=== PATIENT | male | born 1935 | race Caucasian/White ===

== ENCOUNTER 2016-08-22 20:44 | Inpatient (IN) ==
[2016-08-22] MEDS ORDERED: TICAGRELOR 90 MG TABLET ONE (21:02)
[2016-08-22] MEDS ORDERED: ASPIRIN 325 MG TABLET ONE (21:03)
[2016-08-22] MEDS ORDERED: NITROGLYCERIN 2% OINT 1 INCH/GM PACK TOP ONE (21:03)
[2016-08-22] MEDS ORDERED: SODIUM CHLORIDE 0.9% 500 ML IV STA (21:05)
[2016-08-22] MEDS ORDERED: ENOXAPARIN 100 MG/ML SYRINGE SUBCUT STA (21:05)
[2016-08-22] MEDS ORDERED: ASPIRIN CHEW 81 MG TABLET PO STA (21:05)
[2016-08-22] MEDS ORDERED: MORPHINE 2 MG/1 ML SYRINGE IV PRN (21:05)
[2016-08-22] MEDS ORDERED: TICAGRELOR 90 MG TABLET PO STA (21:05)
[2016-08-22] MEDS ORDERED: ENOXAPARIN 60 MG/0.6 ML SYRINGE ONE (21:07)
[2016-08-22] MEDS ORDERED: NITROGLYCERIN 2% OINT 1 INCH/GM PACK TOP STA (21:10)
[2016-08-22] MEDS ORDERED: ONDANSETRON 4 MG/2 ML VIAL ONE (21:11)
--- NOTE | 2016-08-22 21:14 | Emergency Department Note ---
Cheryl Ramirez Hilary, am scribing for, and in the presence of, Lion Lara MD 20:59. Marco Ramirez Robert M, MD, personally performed the services described in this documentation, ascribed by Latanya Luna in my presence, and it is both accurate and complete . Arrival - Arrival Stated Complaint: COPD Mode of Arrival: Stretcher Limitations: No Limitations Source: Patient, RN Notes Reviewed Time Seen by Provider: 08/22/16 20:54 - History of Present Illness HPI Narrative: Pt is a 80 y/o white male brought to the ED via EMS from [facility] for c/o trouble breathing which onset yesterday. Pt reports having trouble breathing and coughing up thin, colorless mucus. He states that when he coughs up a "big wad" [of mucus] he can breathe better. He denies any fever but confirms left chest pain which was not told to [facility]. No other complaints or problems stated in the ED. Onset (ago): day(s) Consistency: constant Severity: mild Severity scale (1-10): 1 Allergies/Adverse Reactions: Allergies Allergy/AdvReac Type Severity Reaction Status Date / Time blue dye Allergy Unknown Verified 01/17/16 10:15 budesonide [From Symbicort] Allergy Unknown Verified 01/17/16 10:14 Formoterol [From Symbicort] Allergy Unknown Verified 01/17/16 10:14 ibuprofen [From Advil] Allergy Unknown Verified 01/17/16 10:08 levofloxacin [From Levaquin] Allergy Unknown Verified 01/17/16 10:13 omeprazole Allergy Unknown Verified 01/17/16 10:13 tiotropium Allergy Unknown Verified 01/17/16 10:15 [From Spiriva with HandiHaler] Home Medications: Home Medications Medication Instructions Recorded Confirmed Type Albuterol Sulfate [Albuterol Neb] 2.5 mg RESP TX Q6HR 01/17/16 08/22/16 History Albuterol Sulfate [Ventolin HFA] 2 puff INH Q6H PRN 01/17/16 08/22/16 History Aspirin [Ecotrin] 81 mg PO DAILY 01/17/16 08/22/16 History Benzonatate [Tessalon] 100 mg PO TID 01/17/16 08/22/16 History Budesonide Neb [Pulmicort Respules] 0.25 mg RESP TX BID 01/17/16 08/22/16 History Docusate Sodium Cap [Colace Cap] 100 mg PO BEDTIME 01/17/16 08/22/16 History Finasteride 5 mg PO DAILY 01/17/16 08/22/16 History Furosemide Tab [Lasix Tab] 20 mg PO DAILY 01/17/16 08/22/16 History LORazepam [Lorazepam] 0.5 mg PO BID PRN 01/17/16 08/22/16 History Meclizine [Antivert] 25 mg PO QID PRN 01/17/16 08/22/16 History Potassium Chloride 20 meq PO DAILY 01/17/16 08/22/16 History Roflumilast [Daliresp] 500 mcg PO DAILY 01/17/16 08/22/16 History Tamsulosin [Flomax] 0.4 mg PO DAILY 01/17/16 08/22/16 History Aspirin 08/22/16 History Cyclobenzaprine [Flexeril] 10 mg PO TID PRN 08/22/16 08/22/16 History Ferrous Sulfate 325 mg PO DAILY 08/22/16 08/22/16 History Review of System - Review of System 12 point system: reviewed and no additional remarkable complaints except as stated - Review of System Constitutional: Absent: fever Respiratory: Present: respiratory distress (SOB) Cardiovascular: Absent: chest pain Exam Vital Signs: Vital Signs Temperature 97.7 F 08/22/16 20:44 Pulse Rate 109 H 08/22/16 21:27 Respiratory Rate 20 08/22/16 21:27 Blood Pressure 97/60 08/22/16 21:27 O2 Sat by Pulse Oximetry 96 08/22/16 21:27 - General General appearance: alert, in no apparent distress - Head Head exam: Present: atraumatic, normocephalic - Eye Eye exam: Present: normal appearance, PERRL, EOMI - ENT ENT exam: Present: mucous membranes moist, TM's normal bilaterally. Absent: mucous membranes dry - Neck Neck exam: Present: full ROM, trachea midline. Absent: tenderness - Chest Chest inspection: Present: symmetric chest wall rise, tenderness (left anterior chest wall pain), other (Barrel chested, subcostal retraction) - Respiratory Respiratory exam: Present: normal lung sounds bilaterally, other (speaks in one word sentences). Absent: respiratory distress - Cardiovascular Cardiovascular exam: Present: regular rate, normal rhythm, normal heart sounds. Absent: murmur, rubs, gallop - Abdominal Exam Abdominal exam: Present: soft, normal bowel sounds. Absent: distention, tenderness - Extremities Exam Extremities exam: Present: full ROM. Absent: tenderness - Back Exam Back exam: Present: full ROM. Absent: tenderness - Neurological Exam Neurological exam: Present: alert, oriented X3, CN II-XII intact. Absent: motor sensory deficit - Psychiatric Psychiatric exam: Present: normal affect, normal mood - Skin Skin exam: Present: warm, dry, intact, normal color. Absent: rash Course - Reevaluation(s) Reevaluation #1: It is confirmed that the patient has had left chest wall pain radiating to the axilla all day. He states this is been worse today although intermittently he has had episodes chronically. Time: 21:00 - Consultations Consultation #1: EKGs were sent to Dr. Rodríguez who is on-call. I paged him as well he called back at approximately 2105 hrs. at that time, he agreed that the EKG is equivocal and that we had the options of either just getting enzymes and treated conservatively and therefore falling out of the STEMI protocol should there truly be a STEMI versus taking the patient straight to laboratory machinist. Given the possibility of falling out of STEMI activation protocols, and the vague left chest pain present, I feel the best thing to do would be to take the patient to the [facility] Interference Super[facility] and evaluate. Dr. Rodríguez agrees. Time: 21:00 Results - Labs CBC & BMP: 08/22/16 21:05 08/22/16 21:05 Lab Results: I have reviewed the patients labs Labs: Lab Results WBC 17.0 T/CUMM (4-12) H 08/22/16 21:05 RBC 3.66 MC/CUMM (3.8-5.5) L 08/22/16 21:05 Hgb 10.6 GM/DL (14.0-18.0) L 08/22/16 21:05 Hct 31.4 VOL% (42.0-52.0) L 08/22/16 21:05 MCV 85.8 FL (87-102) L 08/22/16 21:05 MCH 29 PG (27-34) 08/22/16 21:05 MCHC 33.8 GM/DL (32-36) 08/22/16 21:05 RDW 16.2 % (9.3-17.3) 08/22/16 21:05 Plt Count 313 T/CUMM (130-400) 08/22/16 21:05 MPV 9.5 FL (9.6-12.0) L 08/22/16 21:05 Neut % (Auto) 92.7 % (38.7-73.9) H 08/22/16 21:05 Lymph % (Auto) 1.7 % (21.2-54.2) L 08/22/16 21:05 Mclennan % (Auto) 4.6 % (1.7-12.7) 08/22/16 21:05 Eos % (Auto) 0.0 % (0.00-10.9) 08/22/16 21:05 Baso % (Auto) 0.1 % (0.0-0.8) 08/22/16 21:05 Neut # (Auto) 15.7 10*3/uL (1.4-7.4) H 08/22/16 21:05 Lymph # (Auto) 0.3 10*3/uL (1.4-4.0) L 08/22/16 21:05 Mclennan # (Auto) 0.8 10*3/uL (0.11-0.8) 08/22/16 21:05 Eos # (Auto) 0.0 10*3/uL (0.0-0.87) 08/22/16 21:05 Baso # (Auto) 0.0 10*3/uL (0.0-0.2) 08/22/16 21:05 Total Counted 100 08/22/16 21:05 Immature Gran % 0.9 % 08/22/16 21:05 Nucleated RBC % 0.0 /100WBC 08/22/16 21:05 Immature Gran # 0.15 # 08/22/16 21:05 Segmented Neutrophils 93 % (50-85) H 08/22/16 21:05 Lymphocytes 4 % (20-55) L 08/22/16 21:05 Monocytes 3 % (2-15) 08/22/16 21:05 Nucleated RBCs # 0.00 10*3/uL 08/22/16 21:05 Platelet Estimate Normal 08/22/16 21:05 Hypochromasia Slight 08/22/16 21:05 Poikilocytosis Slight 08/22/16 21:05 Tear Drop Cells Few 08/22/16 21:05 INR 1.2 08/22/16 21:05 PT Patient/Control Mix 12.9 SECS 08/22/16 21:05 Sodium 138 MMOL/L (136-145) 08/22/16 21:05 Potassium 4.2 MMOL/L (3.5-5.1) 08/22/16 21:05 Chloride 102 MMOL/L (98-107) 08/22/16 21:05 Carbon Dioxide 25 MMOL/L (21-32) 08/22/16 21:05 Anion Gap 15.2 MMOL/L (5.0-15.0) H 08/22/16 21:05 BUN 32 MG/DL (7-18) H 08/22/16 21:05 Creatinine 1.30 MG/DL (0.70-1.30) 08/22/16 21:05 GFR Calculation 46 ML/MIN 08/22/16 21:05 BUN/Creatinine Ratio 24.00 RATIO (6.00-20.00) H 08/22/16 21:05 Glucose 121 MG/DL (74-106) H 08/22/16 21:05 Calculated Osmolality 282.7 MOS/KG (273-304) 08/22/16 21:05 Calcium 9.2 MG/DL (8.5-10.1) 08/22/16 21:05 Magnesium 2.3 MG/DL (1.8-2.4) 08/22/16 21:05 Total Bilirubin 0.60 MG/DL (0.2-1.0) 08/22/16 21:05 AST 31 U/L (0-37) 08/22/16 21:05 ALT 20 U/L (16-61) 08/22/16 21:05 Alkaline Phosphatase 98 U/L (45-117) 08/22/16 21:05 Troponin I < 0.015 NG/ML (0.00-0.045) 08/22/16 21:05 Total Protein 6.3 G/DL (6.4-8.3) L 08/22/16 21:05 Albumin 3.0 G/DL (3.4-5.0) L 08/22/16 21:05 Globulin 3.3 G/DL (2.3-3.5) 08/22/16 21:05 Albumin/Globulin Ratio 0.9 RATIO (1.1-2.2) L 08/22/16 21:05 Critical Care Time Critical Care Time: Yes Total Critical Care Time: 43 Disposition Clinical Impression: STEMI (ST elevation myocardial infarction), Acute exacerbation of chronic obstructive airways disease Case discussed with: patient, patient's family Disposition: Still a Patient Condition: Stable Time of Disposition: 21:16
[2016-08-22] MEDS ORDERED: ONDANSETRON 4 MG/2 ML VIAL IV STA (21:16)
[2016-08-22 21:18] LABS: Basophils % 0.1 % (0.0-0.8); Hematocrit 31.4 VOL% (42.0-52.0); Hemoglobin 10.6 GM/DL (14.0-18.0); Immature Granulocytes % 0.9 %; Immature Granulocytes Absolute 0.15 #; Lymphocytes # 0.3 10*3/uL (1.4-4.0); Lymphocytes % 1.7 % (21.2-54.2); Mean Corpuscular HGB Conc 33.8 GM/DL (32-36); Mean Corpuscular Hemoglobin 29 PG (27-34); Mean Corpuscular Volume 85.8 FL (87-102); Mean Platelet Volume 9.5 FL (9.6-12.0); Monocytes # 0.8 10*3/uL (0.11-0.8); Monocytes % 4.6 % (1.7-12.7); Neutrophils # 15.7 10*3/uL (1.4-7.4); Neutrophils % 92.7 % (38.7-73.9); Platelet Count 313 T/CUMM (130-400); Red Blood Count 3.66 MC/CUMM (3.8-5.5); Red Cell Distribution Width 16.2 % (9.3-17.3)
[2016-08-22 21:24] LABS: INR 1.2; PT Patient Result 12.9 SECS
[2016-08-22] MEDS ORDERED: LIDOCAINE 1% 20 ML VIAL ONE (21:25)
[2016-08-22] MEDS ORDERED: HEPARIN/NACL 0.9% 2 UNITS/ML 1,000 ML IV ONE (21:25)
[2016-08-22 21:32] LABS: Alanine Aminotransferase 20 U/L (16-61); Alkaline Phosphatase 98 U/L (45-117); Aspartate Amino Transferase 31 U/L (0-37); Blood Urea Nitrogen 32 MG/DL (7-18); Calcium 9.2 MG/DL (8.5-10.1); Glucose 121 MG/DL (74-106); Magnesium 2.3 MG/DL (1.8-2.4); Osmolality,Calculated 282.7 MOS/KG (273-304); Potassium 4.2 MMOL/L (3.5-5.1); Sodium 138 MMOL/L (136-145); Total Protein 6.3 G/DL (6.4-8.3); Troponin I Only < 0.015 NG/ML (0.00-0.045)
[2016-08-22] MEDS ORDERED: HYDROmorphone 2 MG/1 ML VIAL ONE (21:34)
[2016-08-22] MEDS ORDERED: MIDAZOLAM 2 MG/2 ML VIAL ONE (21:48)
--- NOTE | 2016-08-22 21:59 | Cardiac Catheterization ---
Date of Procedure:: 08/22/16 Procedure: CLINICAL SUMMARY: The patient presented to the emergency room with a history of COPD who presented with dyspnea and chest pain symptoms. He had EKG changes that could possibly have represented coronary syndrome so he was taken emergently for cardiac catheterization. PROCEDURES PERFORMED: 1. Right femoral percutaneous arteriotomy 2. Left heart catheterization. 3. Resting hemodynamics. 4. Left ventriculography. 5. Coronary arteriography. 6. Right femoral arteriogram. DESCRIPTION OF PROCEDURE: After obtaining informed consent, the patient was brought to the cardiac catheterization lab where the right groin was prepped and draped in the usual sterile manner. Using IV sedation, local anesthesia, and Modified Seldinger technique, a needle was placed in the right femoral artery and a sheath was positioned without difficulty. A left coronary catheter was advanced over a guidewire under fluoroscopic control to the ascending aorta where angiograms of the left coronary artery were undertaken in multiple views. After adequate angiograms, this catheter was withdrawn and a right coronary catheter was advanced over a guidewire under fluoroscopic control to the ascending aorta with angiograms of the RCA were undertaken in numerous projections. After adequate angiograms, this catheter was removed and a pigtail ventriculographic catheter was advanced over a guidewire under fluoroscopic control to the aortic valve and left ventricular pressures were measured. After adequate pressures were measured, this catheter was used to perform left ventriculography in the ADAMS projection. This catheter was then withdrawn under hemodynamic monitoring and removed from the patient. A right femoral arteriogram was performed showing a retrograde dissection from sheath placement of the site of some diffuse atherosclerosis. There was normal distal flow. We did not place a closure device but achieved hemostasis by direct pressure. HEMODYNAMICS: See the accompanying data sheet. CORONARY ARTERIOGRAPHY: LEFT MAIN: The left main coronary artery is a large caliber vessel, which bifurcates into the left anterior descending and left circumflex coronary arteries. The left main coronary artery has no significant obstructive disease. LEFT CIRCUMFLEX: The left circumflex coronary artery is moderate to large caliber vessel which gives off a moderate to large obtuse marginal branch. The left circumflex and extremities are angiographically free of significant obstructive disease. LEFT ANTERIOR DESCENDING: The left anterior descending artery is a large- caliber vessel which gives off a small first diagonal branch and a moderate- sized second diagonal branch. The left anterior descending coronary artery and its tributaries are angiographically free of significant obstructive disease. RIGHT CORONARY ARTERY: The right coronary artery is a moderate to large caliber vessel which gives of the posterior descending artery and a posterolateral system. The right coronary artery is angiographically free of significant obstructive disease. LEFT VENTRICULOGRAPHY: Left ventricular branch has a left ventricular ejection fraction of 60-65% with normal regional wall motion. PERIPHERAL ARTERIOGRAPHY: Right femoral arteriogram shows a diffuse atherosclerosis with a retrograde dissection from the femoral sheath. IMPRESSIONS: 1. There is no significant obstructive coronary artery disease. 2. Normal left ventricular systolic function. 3. There is a retrograde dissection in the right iliofemoral region with normal distal flow. We did not place a closure device because of this but achieved hemostasis by direct pressure. PLAN: The patient does not have a coronary syndrome after all. His coronary anatomy is normal. I discussed the case with Dr. Balderas who is going to admit him and manage his COPD. I will continue to follow to take a look at his groin after our cardiac cath access. Anesthesia: minimal conscious sedation Surgeon / Physician: Dilip Rodríguez Estimated blood loss: minimal Condition: stable Disposition: floor - Discharge Disposition: Still a Patient - Medications / Follow-up
[2016-08-22 22:03] LABS: Hypochromasia Slight; Lymphocytes 4 % (20-55); Platelet Estimate Normal; Segmented Neutrophils 93 % (50-85); Total Cells Counted 100
[2016-08-22 22:04] LABS: Poikilocytosis Slight; Tear Drop Cells Few
[2016-08-22] MEDS ORDERED: CYCLOBENZAPRINE 10 MG TABLET PO PRN (22:06)
--- NOTE | 2016-08-22 22:13 | Hospitalist History & Physical ---
Assessment and Plan (1) Chest pain Status: Acute Current Visit: Yes (2) Acute exacerbation of chronic obstructive airways disease Status: Acute Current Visit: Yes (3) History of bladder cancer Status: Acute Current Visit: Yes (4) History of frequent urinary tract infections Status: Acute Assessment and plan: Our plan for this patient will be admitting him to our service. Patient will be observed on telemetry. We will continue his home medications. We need to reevaluate patient when patient is awake, alert. Patient seems to be on the proper medications for his COPD. He sees Dr. Presley Lloyd for his COPD. Patient is feeling better in the morning regarding shortness of breath and okay with cardiology should be able to be discharged Current Visit: Yes History of Present Illness Chief complaint: COPD exacerbation History of present illness: Mr. Estrada is a 80 year old male with past medical history of COPD was taken to the emergency room at [place] complaining about trouble breathing was started yesterday. According to the ER physician patient was having trouble breathing and coughing up thin colorless mucus. He reported that he could currently breathe better. He really denied any fever. But confirms left chest pain which was not relayed to the physician at [place]. When he told our ER physician the S we did a cardiology workup including EKG. The EKG did have changes consistent with an STEMI. Dr. Rodríguez was consulted and took the patient to the [facility]. Patient [facility] report did displayed no significant obstructive coronary disease with a normal left ventricular systolic function. He developed a retrograde dissection in the right iliofemoral region with normal distal flow. Dr. Rodríguez call me from the [facility] and requested my assistance with treating his COPD exacerbation. He will continue to follow the patient up on the floor since he is status post cath. Home Medications Medication Instructions Recorded Confirmed Type Albuterol Sulfate [Albuterol Neb] 2.5 mg RESP TX Q6HR 01/17/16 08/22/16 History Albuterol Sulfate [Ventolin HFA] 2 puff INH Q6H PRN 01/17/16 08/22/16 History Aspirin [Ecotrin] 81 mg PO DAILY 01/17/16 08/22/16 History Benzonatate [Tessalon] 100 mg PO TID 01/17/16 08/22/16 History Budesonide Neb [Pulmicort Respules] 0.25 mg RESP TX BID 01/17/16 08/22/16 History Docusate Sodium Cap [Colace Cap] 100 mg PO BEDTIME 01/17/16 08/22/16 History Finasteride 5 mg PO DAILY 01/17/16 08/22/16 History Furosemide Tab [Lasix Tab] 20 mg PO DAILY 01/17/16 08/22/16 History LORazepam [Lorazepam] 0.5 mg PO BID PRN 01/17/16 08/22/16 History Meclizine [Antivert] 25 mg PO QID PRN 01/17/16 08/22/16 History Potassium Chloride 20 meq PO DAILY 01/17/16 08/22/16 History Roflumilast [Daliresp] 500 mcg PO DAILY 01/17/16 08/22/16 History Tamsulosin [Flomax] 0.4 mg PO DAILY 01/17/16 08/22/16 History Aspirin 08/22/16 History Cyclobenzaprine [Flexeril] 10 mg PO TID PRN 08/22/16 08/22/16 History Ferrous Sulfate 325 mg PO DAILY 08/22/16 08/22/16 History Allergies Allergy/AdvReac Type Severity Reaction Status Date / Time blue dye Allergy Unknown Verified 01/17/16 10:15 budesonide [From Symbicort] Allergy Unknown Verified 01/17/16 10:14 Formoterol [From Symbicort] Allergy Unknown Verified 01/17/16 10:14 ibuprofen [From Advil] Allergy Unknown Verified 01/17/16 10:08 levofloxacin [From Levaquin] Allergy Unknown Verified 01/17/16 10:13 omeprazole Allergy Unknown Verified 01/17/16 10:13 tiotropium Allergy Unknown Verified 01/17/16 10:15 [From Spiriva with HandiHaler] Medical,Surgical,& Family Hx - Medical History Respiratory: History of: COPD Genitourinary: History of: Bladder Problem - Surgical History Additional Surgical History: Bladder surgery for cancer - Family History Family History: Reports;: Family Hypertension - Social History Smoking Status: Smoker, status unknown Frequency of Alcohol Use: None Type of Drug Use: None, Unknown ROS unobtainable: due to mental status Exam - Constitutional Vitals: Period Temp Pulse Resp BP Sys/Ho Pulse Ox Last 24 Hr 97.7 F-97.7 F 109-116 18-20 97-109/60-62 94-96 General appearance: under weight - Head Head exam: Present: normal inspection - ENT ENT exam: Present: normal exam - Neck Neck exam: Present: normal inspection - Respiratory Respiratory exam: Present: clear to auscultation bilaterally - Cardiovascular Cardiovascular exam: Present: regular rate and rhythm - GI/Abdominal GI/Abdominal exam: Present: normal bowel sounds - Extremities Exam Extremities exam: Present: normal inspection - Back Exam Back exam: Present: normal inspection - Neurological Exam Neurological exam: Present: other (Patient still sedated from medication received during the cath) - Psychiatric Psychiatric exam: Present: normal affect - Skin Skin exam: Present: normal color Results - Labs CBC & BMP: 08/22/16 21:05 08/22/16 21:05
[2016-08-22] MEDS ORDERED: cefTRIAXone 1,000 MG in SODIUM CHLORIDE 0.9% 100 ML IV SCH (22:30)
[2016-08-22] MEDS: cefTRIAXone 1,000 MG in SODIUM CHLORIDE 0.9% 100 ML IV SCH (23:59)
[2016-08-23] MEDS ORDERED: ALBUTEROL 2.5 MG/3 ML NEB RESP TX SCH
[2016-08-23] MEDS: ALBUTEROL 2.5 MG/3 ML NEB RESP TX SCH ×4 (00:16→19:18)
--- NOTE | 2016-08-23 03:50 | EKG Report ---
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
--- NOTE | 2016-08-23 07:06 | EKG Report ---
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
--- NOTE | 2016-08-23 07:53 | Hospitalist Progress Note ---
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 Increased dyspnea over last several days. Current Visit: Yes (2) History of bladder cancer Status: Chronic Assessment and plan: Associated prostatism. Current Visit: Yes Hospitalist: Subjective Interval history: 80-year-old male with established chronic obstructive pulmonary disease with history of alpha 1 antitrypsinase deficiency; presented to his local hospital with a sensation of chest pressure and increased shortness of breath over several days. EKG there was abnormal and the patient was transferred to this facility where he underwent cardiac catheterization demonstrating normal LV systolic performed and normal coronary angiography. Patient's medications at home are supervised by home health and he states he has been compliant. There is been no change in his sputum production. Overnight he has been afebrile with stable vital signs. He did have a leukocytosis of presentation. Document from external facility does not include a chest x-ray. Exam - Constitutional Vitals: Period Temp Pulse Resp BP Sys/Ho Pulse Ox Last 24 Hr 96.8 F-98.9 F 81-116 16-20 79-109/45-62 94-100 General appearance: under weight - Respiratory Respiratory exam: Present: wheezes (Soft end expiratory wheezing bilaterally appear), other (Marked increase in AP diameter). Absent: rales, rhonchi - Cardiovascular Cardiovascular exam: Present: regular rate and rhythm - GI/Abdominal GI/Abdominal exam: Present: normal bowel sounds. Absent: distended, organomegaly - Extremities Exam Extremities exam: Absent: edema - Neurological Exam Neurological exam: Present: alert, oriented X3 Results - Labs CBC & BMP: 08/22/16 21:05 08/22/16 21:05 - Impressions Sinus rhythm isolated ventricular premature depolarization T-wave peaking with low limb lead amplitude Specialty Discharge - Follow Up or Referrals
[2016-08-23] MEDS: BUDESONIDE 0.25 MG/2 ML NEB RESP TX SCH ×2 (08:03→19:18)
[2016-08-23] MEDS: FERROUS SULFATE 325 MG TABLET PO SCH (08:18)
[2016-08-23] MEDS: BENZONATATE 100 MG CAPSULE PO SCH ×3 (08:18→20:37)
[2016-08-23] MEDS: CYCLOBENZAPRINE 10 MG TABLET PO PRN (08:18)
[2016-08-23] MEDS: POTASSIUM CHLORIDE 20 MEQ TABLET PO SCH (08:18)
[2016-08-23] MEDS: ROFLUMILAST 500 MCG TABLET PO SCH (08:18)
[2016-08-23] MEDS: FUROSEMIDE 20 MG TABLET PO SCH (08:18)
[2016-08-23] MEDS: ASPIRIN EC 81 MG TABLET PO SCH (08:18)
[2016-08-23] MEDS: predniSONE 20 MG TABLET PO SCH (08:18)
[2016-08-23] MEDS: FINASTERIDE 5 MG TABLET PO SCH (08:18)
--- NOTE | 2016-08-23 08:53 | XRay Report ---
XR chest 2V Indication: COPD exacerbation Comparison: 22 August 2016 Findings: The heart and mediastinum are normal in size and configuration. The pulmonary vascularity is normal in caliber. Lung volumes are increased with prominent bronchial markings. There is some increased left midlung density present, similar to previous exam. No other lung infiltrates, effusions, pneumothorax or other abnormality is demonstrated. Impression: Increased left midlung density, may indicate pneumonia. PROCEDURE INTERPRETED AT [facility] DEPARTMENT OF RADIOLOGY Final Report Signed by: Dr. Benny Sanchez
[2016-08-23] MEDS ORDERED: predniSONE 20 MG TABLET PO SCH (09:00)
[2016-08-23] MEDS ORDERED: BENZONATATE 100 MG CAPSULE PO SCH (09:00)
[2016-08-23] MEDS ORDERED: FERROUS SULFATE 325 MG TABLET PO SCH (09:00)
[2016-08-23] MEDS ORDERED: ASPIRIN EC 81 MG TABLET PO SCH (09:00)
[2016-08-23] MEDS ORDERED: BUDESONIDE 0.25 MG/2 ML NEB RESP TX SCH (09:00)
[2016-08-23] MEDS ORDERED: FINASTERIDE 5 MG TABLET PO SCH (09:00)
[2016-08-23] MEDS ORDERED: FUROSEMIDE 20 MG TABLET PO SCH (09:00)
[2016-08-23] MEDS ORDERED: NON-FORMULARY MEDICATION (Potassium Chloride [Potassium Chloride] 20 MEQ) PO SCH (09:00)
[2016-08-23] MEDS ORDERED: ROFLUMILAST 500 MCG TABLET PO SCH (09:00)
--- NOTE | 2016-08-23 13:37 | Cardiology Progress Note ---
Assessment and Plan (1) Chest pain Status: Acute Assessment and plan: Cardiac catheterization showed no significant coronary artery disease and normal left ventricular function. Groin and distal pulses today are intact. I do not think any additional cardiac workup or treatment is required. I am going to drop off of his case. Please call if I can be of further assistance. Current Visit: Yes (2) Acute exacerbation of chronic obstructive airways disease Status: Acute Assessment and plan: Workup and treatment underway per hospitalist team. Current Visit: Yes (3) History of frequent urinary tract infections Status: Acute Current Visit: Yes (4) History of bladder cancer Status: Chronic Current Visit: Yes Cardiology - PN: Subj Interval history: The patient is doing well today. Cardiac catheterization yesterday did not show any significant coronary artery disease and demonstrated normal left ventricular systolic function. Examination of the patient's groin and distal pulses today shows no evidence of significant problem or complication. He denies any cardiac symptoms today. He is being treated for his COPD. Current Medications Albuterol Sulfate (Proventil Neb) 2.5 mg RESP TX RT Q6H [facility] Last Admin: 08/23/16 08:03 Dose: 2.5 mg Aspirin () 81 mg PO DAILY [facility] Last Admin: 08/23/16 08:18 Dose: 81 mg Benzonatate (Tessalon) 100 mg PO TID [facility] Last Admin: 08/23/16 08:18 Dose: 100 mg Budesonide (Pulmicort Respules) 0.25 mg RESP TX RT BID [facility] Last Admin: 08/23/16 08:03 Dose: 0.25 mg Cyclobenzaprine HCl (Flexeril) 10 mg PO TID PRN PRN Reason: Muscle Spasm Last Admin: 08/23/16 08:18 Dose: 10 mg Docusate Sodium (Colace Cap) 100 mg PO BEDTIME [facility] Ferrous Sulfate (Feosol Original Tab) 325 mg PO DAILY [facility] Last Admin: 08/23/16 08:18 Dose: 325 mg Finasteride (Proscar) 5 mg PO DAILY [facility] Last Admin: 08/23/16 08:18 Dose: 5 mg Furosemide (Lasix Tab) 20 mg PO DAILY [facility] Last Admin: 08/23/16 08:18 Dose: 20 mg Ceftriaxone Sodium 1,000 mg/ (Sodium Chloride) 100 mls @ 200 mls/hr IV Q24H [facility] Last Infusion: 08/23/16 00:36 Dose: Infused Potassium Chloride (K Dur) 20 meq PO DAILY [facility] Last Admin: 08/23/16 08:18 Dose: 20 meq Prednisone () 40 mg PO DAILY [facility] Last Admin: 08/23/16 08:18 Dose: 40 mg Roflumilast (Daliresp) 500 mcg PO DAILY [facility] Last Admin: 08/23/16 08:18 Dose: 500 mcg Exam (Progress Note) - Constitutional Vitals: Period Temp Pulse Resp BP Sys/Ho Pulse Ox Last 24 Hr 96.8 F-98.9 F 81-116 16-20 79-139/45-62 94-100 Exam: General: Frail, elderly, chronically ill-appearing HEENT: Normocephalic, atraumatic Neck: Supple Neck, Midline Trachea Cardiac: Regular rhythm, 2/6 systolic murmur, no gallop, no rub Lungs: Increased expiratory phase consistent with COPD without overt rales or wheeze Neuro: Cranial Nerve 2-12 Intact, diffuse generalized weakness Abdomen: Soft, Active Bowel Sounds, No Masses, No Pulsations/Bruits Skin: Normal color, no rash Groin: no evidence of hematoma or other complication Extremities: No Clubbing, No Cyanosis, No Edema, Normal Upper and lower Extr. Pulses Musculoskeletal: No acute abnormality noted Psychiatric: The patient is alert and oriented. The patient has a flat affect but does not appear to be anxious or depressed. Result/EKG - Labs CBC & BMP: 08/22/16 21:05 08/22/16 21:05 Lab Results: I have reviewed the past 24 hour labs Labs: Laboratory Results - last 24 hr 08/22/16 08/22/16 08/22/16 21:05 21:05 21:05 WBC 17.0 H RBC 3.66 L Hgb 10.6 L Hct 31.4 L MCV 85.8 L MCH 29 MCHC 33.8 RDW 16.2 Plt Count 313 MPV 9.5 L Neut % (Auto) 92.7 H Lymph % (Auto) 1.7 L Potter % (Auto) 4.6 Eos % (Auto) 0.0 Baso % (Auto) 0.1 Neut # (Auto) 15.7 H Lymph # (Auto) 0.3 L Potter # (Auto) 0.8 Eos # (Auto) 0.0 Baso # (Auto) 0.0 Total Counted 100 Immature Gran % 0.9 Nucleated RBC % 0.0 Immature Gran # 0.15 Segmented Neutrophils 93 H Lymphocytes 4 L Monocytes 3 Nucleated RBCs # 0.00 Platelet Estimate Normal Hypochromasia Slight Poikilocytosis Slight Tear Drop Cells Few INR 1.2 PT Patient/Control Mix 12.9 Sodium 138 Potassium 4.2 Chloride 102 Carbon Dioxide 25 Anion Gap 15.2 H BUN 32 H Creatinine 1.30 GFR Calculation 46 BUN/Creatinine Ratio 24.00 H Glucose 121 H Calculated Osmolality 282.7 Calcium 9.2 Magnesium 2.3 Total Bilirubin 0.60 AST 31 ALT 20 Alkaline Phosphatase 98 Troponin I < 0.015 Total Protein 6.3 L Albumin 3.0 L Globulin 3.3 Albumin/Globulin Ratio 0.9 L - EKG EKG results: interpreted by me Specialty Discharge - Follow Up or Referrals
[2016-08-23] MEDS: DOCUSATE SODIUM 100 MG CAPSULE PO SCH (20:37)
[2016-08-23] MEDS ORDERED: DOCUSATE SODIUM 100 MG CAPSULE PO SCH (21:00)
[2016-08-24] MEDS: ALBUTEROL 2.5 MG/3 ML NEB RESP TX SCH ×4 (00:34→19:18)
[2016-08-24] MEDS: cefTRIAXone 1,000 MG in SODIUM CHLORIDE 0.9% 100 ML IV SCH (01:14)
[2016-08-24 04:53] LABS: Basophils % 0.1 % (0.0-0.8); Hematocrit 29.4 VOL% (42.0-52.0); Hemoglobin 9.8 GM/DL (14.0-18.0); Immature Granulocytes % 1.1 %; Immature Granulocytes Absolute 0.21 #; Lymphocytes # 0.6 10*3/uL (1.4-4.0); Lymphocytes % 3.3 % (21.2-54.2); Mean Corpuscular HGB Conc 33.3 GM/DL (32-36); Mean Corpuscular Hemoglobin 29 PG (27-34); Mean Corpuscular Volume 86.7 FL (87-102); Mean Platelet Volume 9.9 FL (9.6-12.0); Monocytes # 1.5 10*3/uL (0.11-0.8); Monocytes % 7.9 % (1.7-12.7); Neutrophils # 16.3 10*3/uL (1.4-7.4); Neutrophils % 87.6 % (38.7-73.9); Platelet Count 307 T/CUMM (130-400); Red Blood Count 3.39 MC/CUMM (3.8-5.5); Red Cell Distribution Width 16.6 % (9.3-17.3); White Blood Count 18.6 T/CUMM (4-12)
[2016-08-24 05:33] LABS: Band Neutrophils 4 % (0-10); Lymphocytes 6 % (20-55); Platelet Estimate Normal; Promyelocytes 1 %; Segmented Neutrophils 83 % (50-85); Total Cells Counted 100
[2016-08-24] MEDS: BUDESONIDE 0.25 MG/2 ML NEB RESP TX SCH ×2 (07:24→19:18)
[2016-08-24] MEDS: FERROUS SULFATE 325 MG TABLET PO SCH (08:06)
[2016-08-24] MEDS: predniSONE 20 MG TABLET PO SCH (08:07)
[2016-08-24] MEDS: BENZONATATE 100 MG CAPSULE PO SCH ×3 (08:07→22:38)
[2016-08-24] MEDS: FUROSEMIDE 20 MG TABLET PO SCH (08:07)
[2016-08-24] MEDS: ASPIRIN EC 81 MG TABLET PO SCH (08:07)
[2016-08-24] MEDS: FINASTERIDE 5 MG TABLET PO SCH (08:07)
[2016-08-24] MEDS: POTASSIUM CHLORIDE 20 MEQ TABLET PO SCH (08:07)
[2016-08-24] MEDS: ROFLUMILAST 500 MCG TABLET PO SCH (08:07)
[2016-08-24] MEDS: CYCLOBENZAPRINE 10 MG TABLET PO PRN (08:07)
--- NOTE | 2016-08-24 09:10 | Hospitalist Progress Note ---
Assessment and Plan - Time spent with patient Time spent with patient: Less than 30 minutes (1) Acute exacerbation of chronic obstructive airways disease Status: Acute Assessment and plan: Patient is being treated for acute exacerbation of COPD with possible community- acquired pneumonia. Will continue current medical therapy and reevaluate tomorrow. Current Visit: Yes Hospitalist: Subjective Interval history: Chart reviewed and patient examined. 80-year-old male with COPD and history of alpha-1 antitrypsin deficiency who presented with chest pain and ultimately underwent cardiac catheterization which demonstrated normal LV systolic function and normal coronary angiography. He denies any chest pain today. He does have some chest congestion productive of clear phlegm. He also notes dyspnea with minimal exertion while getting up to go to the bathroom. Exam - Constitutional Vitals: Period Temp Pulse Resp BP Sys/Ho Pulse Ox Last 24 Hr 97 F-98 F 84-107 16-22 99-139/59-65 18-99 General appearance: mild distress - Head Head exam: Present: normocephalic, atraumatic - Eye Eye exam: Present: EOMI Pupils: Present: ZACHARY - ENT ENT exam: Present: normal exam - Neck Neck exam: Present: normal inspection - Respiratory Respiratory exam: Present: decreased breath sounds, prolonged expiratory phase. Absent: rales, rhonchi, wheezes - Cardiovascular Cardiovascular exam: Present: regular rate and rhythm - GI/Abdominal GI/Abdominal exam: Present: normal bowel sounds, soft. Absent: mass, tenderness , rebound - Extremities Exam Extremities exam: Absent: calf tenderness, edema - Back Exam Back exam: Present: normal inspection - Neurological Exam Neurological exam: Present: alert, oriented X3, CN II-XII intact. Absent: motor sensory deficit - Psychiatric Psychiatric exam: Present: normal affect, normal mood, anxious. Absent: agitated - Skin Skin exam: Present: warm, dry. Absent: rash Results - Labs CBC & BMP: 08/24/16 04:01 08/22/16 21:05 Lab Results: I have reviewed the past 24 hour labs - Diagnostic Findings Procedure: Chest x-ray: report reviewed by me Specialty Discharge - Follow Up or Referrals
[2016-08-24] MEDS ORDERED: MECLIZINE 25 MG TABLET PO PRN (09:11)
[2016-08-24] MEDS: LORazepam 0.5 MG TABLET PO PRN (09:28)
[2016-08-24] MEDS: AZITHROMYCIN INJ 500 MG in SODIUM CHLORIDE 0.9% 250 ML IV SCH (11:09)
[2016-08-24] MEDS: methylPREDNISolone SOD SUC 40 MG/1 ML VIAL IV SCH ×3 (11:10→22:38)
[2016-08-24] MEDS: DOCUSATE SODIUM 100 MG CAPSULE PO SCH (22:38)
[2016-08-25] MEDS: cefTRIAXone 1,000 MG in SODIUM CHLORIDE 0.9% 100 ML IV SCH (00:16)
[2016-08-25] MEDS: ALBUTEROL 2.5 MG/3 ML NEB RESP TX SCH ×4 (01:30→20:59)
[2016-08-25] MEDS: methylPREDNISolone SOD SUC 40 MG/1 ML VIAL IV SCH ×4 (04:10→21:22)
[2016-08-25] MEDS: BUDESONIDE 0.25 MG/2 ML NEB RESP TX SCH ×2 (07:18→21:01)
--- NOTE | 2016-08-25 07:52 | Hospitalist Progress Note ---
Assessment and Plan - Time spent with patient Time spent with patient: Less than 30 minutes (1) Acute exacerbation of chronic obstructive airways disease Status: Acute Assessment and plan: 08/24/16: Patient is being treated for acute exacerbation of COPD with possible community-acquired pneumonia. Will continue current medical therapy and reevaluate tomorrow. 08/25/16: Patient is symptomatically improving. Chest x-ray is pending. Continuing IV corticosteroids, IV antibiotics, O2 supplementation and nebulizer therapy. Current Visit: Yes Hospitalist: Subjective Interval history: Mr. Estrada is sitting on the side of the bed about to eat breakfast. He states he feels better but has significant shortness of breath with minimal exertion. He continues to have a cough productive of phlegm. He denies any fever, chills , nausea, vomiting, chest pain. Exam - Constitutional Vitals: Period Temp Pulse Resp BP Sys/Ho Pulse Ox Last 24 Hr 97.3 F-98 F 89-109 16-20 122-151/57-67 94-100 General appearance: no acute distress - Head Head exam: Present: normocephalic, atraumatic - Eye Eye exam: Present: EOMI Pupils: Present: ZACHARY - ENT ENT exam: Present: normal exam - Neck Neck exam: Present: normal inspection - Respiratory Respiratory exam: Present: wheezes (Scattered wheezes bilaterally) - Cardiovascular Cardiovascular exam: Present: regular rate and rhythm, tachycardia - GI/Abdominal GI/Abdominal exam: Present: normal bowel sounds, soft. Absent: mass, tenderness , rebound - Extremities Exam Extremities exam: Absent: calf tenderness, edema - Back Exam Back exam: Present: normal inspection - Neurological Exam Neurological exam: Present: alert, oriented X3, CN II-XII intact. Absent: motor sensory deficit - Psychiatric Psychiatric exam: Present: normal affect, normal mood. Absent: agitated, anxious - Skin Skin exam: Present: warm, dry. Absent: petechiae, rash Results - Labs CBC & BMP: 08/24/16 04:01 08/22/16 21:05 Lab Results: I have reviewed the past 24 hour labs - Diagnostic Findings Procedure: Chest x-ray: image reviewed by me Specialty Discharge - Follow Up or Referrals
[2016-08-25] MEDS ORDERED: ASPIRIN CHEW 81 MG TABLET PO SCH (09:00)
[2016-08-25] MEDS: FERROUS SULFATE 325 MG TABLET PO SCH (09:29)
[2016-08-25] MEDS: POTASSIUM CHLORIDE 20 MEQ TABLET PO SCH (09:29)
[2016-08-25] MEDS: BENZONATATE 100 MG CAPSULE PO SCH ×3 (09:29→21:22)
[2016-08-25] MEDS: ROFLUMILAST 500 MCG TABLET PO SCH (09:29)
[2016-08-25] MEDS: FUROSEMIDE 20 MG TABLET PO SCH (09:29)
[2016-08-25] MEDS: ASPIRIN EC 81 MG TABLET PO SCH (09:30)
[2016-08-25] MEDS: TAMSULOSIN 0.4 MG CAPSULE PO SCH (09:30)
[2016-08-25] MEDS: FINASTERIDE 5 MG TABLET PO SCH (09:30)
--- NOTE | 2016-08-25 10:26 | XRay Report ---
XR chest 2V Date: 08/25/2016 4:00 AM History: Pneumonia Comparison: 08/23/2016 Technique: PA and lateral chest Findings: The heart is small and compressed by the over expanded lungs. Bullous emphysema with reduced parenchymal findings at the lung bases. Ill-defined densities persist especially in the left mid lung zone. Residual left hilar prominence. Degenerative changes are noted. Impression: Bullous emphysema with improved bilateral pneumonia. Persistent left hilar prominence with somewhat nodular appearing parenchymal findings in the left midlung zone. Follow-up chest x-ray is recommended to document clearing and exclude additional underlying mass/adenopathy. Small left pleural effusion. PROCEDURE INTERPRETED AT [facility] [place] DEPARTMENT OF RADIOLOGY Final Report Signed by: Dr. Lisset Mark
[2016-08-25] MEDS: AZITHROMYCIN INJ 500 MG in SODIUM CHLORIDE 0.9% 250 ML IV SCH (10:44)
[2016-08-25] MEDS ORDERED: ALBUTEROL 2.5 MG/3 ML NEB RESP TX PRN (12:09)
[2016-08-25] MEDS: DOCUSATE SODIUM 100 MG CAPSULE PO SCH (21:22)
[2016-08-26] MEDS: ALBUTEROL 2.5 MG/3 ML NEB RESP TX SCH ×5 (00:43→20:32)
[2016-08-26] MEDS: cefTRIAXone 1,000 MG in SODIUM CHLORIDE 0.9% 100 ML IV SCH ×2 (01:34→23:40)
[2016-08-26] MEDS: methylPREDNISolone SOD SUC 40 MG/1 ML VIAL IV SCH ×3 (05:21→23:37)
[2016-08-26] MEDS: BUDESONIDE 0.25 MG/2 ML NEB RESP TX SCH ×2 (07:23→20:33)
[2016-08-26] MEDS: FERROUS SULFATE 325 MG TABLET PO SCH (09:24)
[2016-08-26] MEDS: BENZONATATE 100 MG CAPSULE PO SCH ×3 (09:24→21:39)
[2016-08-26] MEDS: FUROSEMIDE 20 MG TABLET PO SCH (09:24)
[2016-08-26] MEDS: ROFLUMILAST 500 MCG TABLET PO SCH (09:24)
[2016-08-26] MEDS: ASPIRIN EC 81 MG TABLET PO SCH (09:25)
[2016-08-26] MEDS: POTASSIUM CHLORIDE 20 MEQ TABLET PO SCH (09:25)
[2016-08-26] MEDS: TAMSULOSIN 0.4 MG CAPSULE PO SCH (09:25)
[2016-08-26] MEDS: FINASTERIDE 5 MG TABLET PO SCH (09:25)
[2016-08-26] MEDS: AZITHROMYCIN INJ 500 MG in SODIUM CHLORIDE 0.9% 250 ML IV SCH (09:25)
--- NOTE | 2016-08-26 14:24 | Hospitalist Progress Note ---
Assessment and Plan (1) Acute exacerbation of chronic obstructive airways disease Status: Acute Assessment and plan: The patient's shortness of breath seems to be improving very slowly. I am going to try reducing steroid to help with the patient's agitation symptom. I am going to recheck urinalysis and see if he has any pyuria. I am going to increase the frequency of nebulizer to see if we can improve his breathlessness. Current Visit: Yes (2) Chest pain Status: Acute Current Visit: Yes (3) History of frequent urinary tract infections Status: Acute Current Visit: Yes Hospitalist: Subjective Interval history: The patient is sitting at side of bed today. He has had bowel movement today. The patient is agitated concerning what he thinks is too high steroid dose. The patient is concerned that he is not getting any metered-dose inhaler which he believes helped relieve his shortness of breath better than nebulizer. Exam - Constitutional Vitals: Period Temp Pulse Resp BP Sys/Ho Pulse Ox Last 24 Hr 96 F-98.4 F 62-116 16-30 121-154/63-86 88-100 Exam: Constitutional System: Moderate distress on account of chest congestion. Moderate tremulousness. Mild agitation Ears, Nose and Throat System: No evidence of Otitis or Mastoiditis. No epistaxis or discharge Eyes System: Pupils equal, round, and reactive. Extraocular muscles intact. Neck: Supple, without adenopathy, No jugular venous distention. No thyromegaly , neck mass, or prior surgery apparent. Respiratory System: Chest moderate to severe air trapping to auscultation. Cardiovascular System: Heart with regular rate and rhythm. No murmur. GI System: Abdomen soft, nontender. Normo active bowel sounds present. Musculoskeletal System: limbs with no pedal edema. Full distal pulses. Neurological System: No discernable sensory deficit. No aphasia Psychiatric System: Conversation is rational Results - Labs CBC & BMP: 08/24/16 04:01 08/22/16 21:05 Lab Results: I have reviewed the past 24 hour labs Specialty Discharge - Follow Up or Referrals
[2016-08-26] MEDS ORDERED: ALBUTEROL 2.5 MG/3 ML NEB RESP TX PRN (15:00)
[2016-08-26 15:49] LABS: Apearance,Urine CLEAR (Clear); Bilirubin,Urine Negative (Negative); Blood, Urine Large mg/dL (Negative); Glucose,Urine (UA) Negative (Negative); Ketones,Urine Negative (Negative); Mucus,Urine Occasional /LPF (Occasional); Nitrite,Urine Negative (Negative); Protein,Urine Negative; RBC,Urine 55 /HPF (0-4); Squamous Epithelial Cell,Urine Occasional /HPF (0-10); Urine Color Straw (Yellow); Urine Specific Gravity 1.009 (1.001-1.035); Urine Urobilinogen < 2.0 EU/DL (0.2-1.0); WBC,Urine 24 /HPF (0-6)
[2016-08-26] MEDS ORDERED: ALBUTEROL NEB SOLN 5 MG/ML 20 ML/BOTTLE CONT NEB ONE (20:31)
[2016-08-26] MEDS: DOCUSATE SODIUM 100 MG CAPSULE PO SCH (21:39)
[2016-08-27] MEDS: ALBUTEROL 2.5 MG/3 ML NEB RESP TX SCH ×7 (00:58→23:53)
[2016-08-27] MEDS: BUDESONIDE 0.25 MG/2 ML NEB RESP TX SCH ×2 (07:20→19:31)
[2016-08-27] MEDS: FERROUS SULFATE 325 MG TABLET PO SCH (09:14)
[2016-08-27] MEDS: TAMSULOSIN 0.4 MG CAPSULE PO SCH (09:14)
[2016-08-27] MEDS: ASPIRIN EC 81 MG TABLET PO SCH (09:14)
[2016-08-27] MEDS: BENZONATATE 100 MG CAPSULE PO SCH ×4 (09:14→21:58)
[2016-08-27] MEDS: FUROSEMIDE 20 MG TABLET PO SCH (09:14)
[2016-08-27] MEDS: POTASSIUM CHLORIDE 20 MEQ TABLET PO SCH (09:14)
[2016-08-27] MEDS: FINASTERIDE 5 MG TABLET PO SCH (09:14)
[2016-08-27] MEDS: ROFLUMILAST 500 MCG TABLET PO SCH (09:14)
[2016-08-27] MEDS: AZITHROMYCIN INJ 500 MG in SODIUM CHLORIDE 0.9% 250 ML IV SCH (11:20)
[2016-08-27] MEDS: methylPREDNISolone SOD SUC 40 MG/1 ML VIAL IV SCH ×2 (11:21→23:14)
--- NOTE | 2016-08-27 11:21 | Hospitalist Progress Note ---
Assessment and Plan (1) Acute exacerbation of chronic obstructive airways disease Status: Acute Assessment and plan: The patient's shortness of breath seems to be improving very slowly. The patient continues to improve on the reduced steroids. I hope to have further culture data tomorrow concerning the infant identification and strength of the urine infection. The patient will continue with beta agonist nebulized therapy and IV antibiotics to treat pneumonia. Current Visit: Yes (2) Chest pain Status: Acute Current Visit: Yes (3) History of frequent urinary tract infections Status: Acute Current Visit: Yes Hospitalist: Subjective Interval history: The patient has accepted a lower dose schedule of Solu-Medrol. The patient has accepted more frequent beta agonist nebulized therapy and is using his metered- dose inhaler from home in case he gets acute shortness of breath between nebulizer doses. The patient's appetite is improving. The patient's lower extremities show 1+ pedal edema but has not worsened. Exam - Constitutional Vitals: Period Temp Pulse Resp BP Sys/Ho Pulse Ox Last 24 Hr 97.1 F-98 F 62-116 16-22 115-134/64-77 92-100 Exam: Constitutional System: Moderate distress on account of chest congestion. Moderate tremulousness. Mild agitation Ears, Nose and Throat System: No evidence of Otitis or Mastoiditis. No epistaxis or discharge Eyes System: Pupils equal, round, and reactive. Extraocular muscles intact. Neck: Supple, without adenopathy, No jugular venous distention. No thyromegaly , neck mass, or prior surgery apparent. Respiratory System: Chest moderate to severe air trapping to auscultation. Cardiovascular System: Heart with regular rate and rhythm. No murmur. GI System: Abdomen soft, nontender. Normo active bowel sounds present. Musculoskeletal System: limbs with no pedal edema. Full distal pulses. Neurological System: No discernable sensory deficit. No aphasia Psychiatric System: Conversation is rational Results - Labs CBC & BMP: 08/24/16 04:01 08/22/16 21:05 Lab Results: I have reviewed the past 24 hour labs Labs: Urinalysis shows pyuria Specialty Discharge - Follow Up or Referrals
--- NOTE | 2016-08-27 14:03 | Physician Query Form ---
CLICK EDIT DOCUMENT TO SELECT QUERY ANSWER --> OK --> SIGN Kajal Urrutia RN Clinical Breading Machine Tender W) [phone] (f) [phone] [email or web address] PROVIDERS: Make your selection(s) from the choices in EACH section by typing an "x" and enter comments in the comment section. Please use your independent medical judgment in providing your response. This request does not imply that any particular answer is desired or expected. CLINICAL INDICATORS: (Providers should not edit this section) The below diagnosis was documented in the record, but is not consistently noted in subsequent documentation. Based on documentation of "possible community-acquired pneumonia". CXR showed "improved bilateral pneumonia". Pt. treated with IV Zithromax and Rocephin. Diagnosis: Pneumonia Please clarify the following: (X ) The above diagnosis was monitored, evaluated, and/or treated and is a confirmed diagnosis ( ) The above diagnosis was ruled out ( ) Other, please specify: ( ) Clinically unable to determine COMMENTS: PLEASE ALSO DOCUMENT RESPONSE IN PROGRESS NOTES AND/OR DISCHARGE SUMMARY Use of terms such as suspected, likely, or probable (associated with a specific diagnosis that is being evaluated, monitored, or treated as if it exists) are acceptable and can be restated in the discharge summary if not ruled out. MTDD
[2016-08-27] MEDS: DOCUSATE SODIUM 100 MG CAPSULE PO SCH (21:58)
[2016-08-28] MEDS: cefTRIAXone 1,000 MG in SODIUM CHLORIDE 0.9% 100 ML IV SCH (00:26)
[2016-08-28] MEDS: ALBUTEROL 2.5 MG/3 ML NEB RESP TX SCH ×6 (03:58→23:56)
[2016-08-28 04:21] LABS: Basophils % 0.1 % (0.0-0.8); Hematocrit 30.2 VOL% (42.0-52.0); Hemoglobin 9.7 GM/DL (14.0-18.0); Immature Granulocytes % 1.2 %; Immature Granulocytes Absolute 0.13 #; Lymphocytes # 0.5 10*3/uL (1.4-4.0); Lymphocytes % 4.5 % (21.2-54.2); Mean Corpuscular HGB Conc 32.1 GM/DL (32-36); Mean Corpuscular Hemoglobin 28 PG (27-34); Mean Corpuscular Volume 86.8 FL (87-102); Mean Platelet Volume 9.8 FL (9.6-12.0); Monocytes # 0.7 10*3/uL (0.11-0.8); Monocytes % 6.2 % (1.7-12.7); Neutrophils # 9.5 10*3/uL (1.4-7.4); Platelet Count 406 T/CUMM (130-400); Red Blood Count 3.48 MC/CUMM (3.8-5.5); Red Cell Distribution Width 16.2 % (9.3-17.3); White Blood Count 10.8 T/CUMM (4-12)
[2016-08-28 04:49] LABS: Band Neutrophils 2 % (0-10); Lymphocytes 6 % (20-55); Segmented Neutrophils 89 % (50-85); Total Cells Counted 100
[2016-08-28 04:50] LABS: Platelet Estimate Normal
[2016-08-28 04:54] LABS: Calcium 8.7 MG/DL (8.5-10.1); Magnesium 2.2 MG/DL (1.8-2.4); Osmolality,Calculated 290.1 MOS/KG (273-304); Potassium 4.5 MMOL/L (3.5-5.1)
[2016-08-28] MEDS: BUDESONIDE 0.25 MG/2 ML NEB RESP TX SCH ×2 (06:52→19:08)
[2016-08-28] MEDS: FERROUS SULFATE 325 MG TABLET PO SCH (08:33)
[2016-08-28] MEDS: POTASSIUM CHLORIDE 20 MEQ TABLET PO SCH (08:33)
[2016-08-28] MEDS: ROFLUMILAST 500 MCG TABLET PO SCH (08:33)
[2016-08-28] MEDS: TAMSULOSIN 0.4 MG CAPSULE PO SCH (08:33)
[2016-08-28] MEDS: ASPIRIN EC 81 MG TABLET PO SCH (08:33)
[2016-08-28] MEDS: FUROSEMIDE 20 MG TABLET PO SCH (08:34)
[2016-08-28] MEDS: FINASTERIDE 5 MG TABLET PO SCH (08:34)
[2016-08-28] MEDS: BENZONATATE 100 MG CAPSULE PO SCH ×4 (08:34→21:18)
[2016-08-28] MEDS: AZITHROMYCIN INJ 500 MG in SODIUM CHLORIDE 0.9% 250 ML IV SCH (09:32)
--- NOTE | 2016-08-28 11:43 | Hospitalist Progress Note ---
Assessment and Plan (1) Acute exacerbation of chronic obstructive airways disease Status: Acute Assessment and plan: The patient's shortness of breath seems to be improving very slowly. I am going to reduce Solu-Medrol to 20 mg twice daily. Urine culture has no growth so far. The patient will continue with beta agonist nebulized therapy and IV Rocephin and oral azithromycin to treat pneumonia. Current Visit: Yes (2) Chest pain Status: Acute Current Visit: Yes (3) History of frequent urinary tract infections Status: Acute Current Visit: Yes Hospitalist: Subjective Interval history: The patient is resting quietly in bed. He had some terminal insomnia last night but less than on previous nights. The patient has improved enthusiasm and feels that he is getting better. We talked about him going home Friday or Friday. We discussed the need to continue for continued tobacco cessation. Tobacco discussion required 6 minutes. Exam - Constitutional Vitals: Period Temp Pulse Resp BP Sys/Ho Pulse Ox Last 24 Hr 96.3 F-97.8 F 76-106 16-24 127-154/68-87 87-100 Exam: Constitutional System: Moderate distress on account of chest congestion. Moderate tremulousness. Mild agitation Ears, Nose and Throat System: No evidence of Otitis or Mastoiditis. No epistaxis or discharge Eyes System: Pupils equal, round, and reactive. Extraocular muscles intact. Neck: Supple, without adenopathy, No jugular venous distention. No thyromegaly , neck mass, or prior surgery apparent. Respiratory System: Chest moderate to severe air trapping to auscultation. Cardiovascular System: Heart with regular rate and rhythm. No murmur. GI System: Abdomen soft, nontender. Normo active bowel sounds present. Musculoskeletal System: limbs with no pedal edema. Full distal pulses. Neurological System: No discernable sensory deficit. No aphasia Psychiatric System: Conversation is rational Results - Labs CBC & BMP: 08/28/16 02:48 08/28/16 02:48 Lab Results: I have reviewed the past 24 hour labs Specialty Discharge - Follow Up or Referrals
[2016-08-28] MEDS: methylPREDNISolone SOD SUC 40 MG/1 ML VIAL IV SCH ×3 (12:20→21:18)
[2016-08-28] MEDS: LORazepam 0.5 MG TABLET PO PRN (17:52)
[2016-08-28] MEDS: DOCUSATE SODIUM 100 MG CAPSULE PO SCH (21:17)
[2016-08-29] MEDS: cefTRIAXone 1,000 MG in SODIUM CHLORIDE 0.9% 100 ML IV SCH ×2 (00:04→23:57)
[2016-08-29] MEDS: ALBUTEROL 2.5 MG/3 ML NEB RESP TX SCH ×5 (03:27→19:53)
[2016-08-29] MEDS: BUDESONIDE 0.25 MG/2 ML NEB RESP TX SCH ×2 (07:00→19:53)
[2016-08-29] MEDS: FUROSEMIDE 20 MG TABLET PO SCH (09:20)
[2016-08-29] MEDS: FERROUS SULFATE 325 MG TABLET PO SCH (09:21)
[2016-08-29] MEDS: BENZONATATE 100 MG CAPSULE PO SCH ×4 (09:21→20:20)
[2016-08-29] MEDS: POTASSIUM CHLORIDE 20 MEQ TABLET PO SCH (09:21)
[2016-08-29] MEDS: ASPIRIN EC 81 MG TABLET PO SCH (09:21)
[2016-08-29] MEDS: TAMSULOSIN 0.4 MG CAPSULE PO SCH (09:21)
[2016-08-29] MEDS: methylPREDNISolone SOD SUC 40 MG/1 ML VIAL IV SCH (09:21)
[2016-08-29] MEDS: FINASTERIDE 5 MG TABLET PO SCH (09:21)
[2016-08-29] MEDS: AZITHROMYCIN 250 MG TABLET PO SCH (09:21)
[2016-08-29] MEDS: ROFLUMILAST 500 MCG TABLET PO SCH (09:57)
[2016-08-29] MEDS: LORazepam 0.5 MG TABLET PO PRN (13:34)
--- NOTE | 2016-08-29 15:11 | Hospitalist Progress Note ---
Assessment and Plan (1) Acute exacerbation of chronic obstructive airways disease Status: Acute Assessment and plan: The patient's shortness of breath seems to be improving very slowly. I am going to discontinue Solu-Medrol and begin prednisone. Urine culture has no growth so far. The patient will continue with beta agonist nebulized therapy and IV Rocephin and oral azithromycin to treat pneumonia. I anticipate discharge home tomorrow Current Visit: Yes (2) Chest pain Status: Acute Current Visit: Yes (3) History of frequent urinary tract infections Status: Acute Current Visit: Yes Hospitalist: Subjective Interval history: The patient is sitting on the side of the bed and breathing with relaxation. The patient become short of breath with any minimal exertion. The patient does not complain of chest pain or angina today Exam - Constitutional Vitals: Period Temp Pulse Resp BP Sys/Ho Pulse Ox Last 24 Hr 96.9 F-98.8 F 72-104 16-20 123-152/58-69 96-100 Exam: Constitutional System: Mild distress on account of air trapping. Minimal tremulousness. No agitation Ears, Nose and Throat System: No evidence of Otitis or Mastoiditis. No epistaxis or discharge Eyes System: Pupils equal, round, and reactive. Extraocular muscles intact. Neck: Supple, without adenopathy, No jugular venous distention. No thyromegaly , neck mass, or prior surgery apparent. Respiratory System: Chest moderate to severe air trapping to auscultation. Cardiovascular System: Heart with regular rate and rhythm. No murmur. GI System: Abdomen soft, nontender. Normo active bowel sounds present. Musculoskeletal System: limbs with no pedal edema. Full distal pulses. Neurological System: No discernable sensory deficit. No aphasia Psychiatric System: Conversation is rational Results - Labs CBC & BMP: 08/28/16 02:48 08/28/16 02:48 Lab Results: I have reviewed the past 24 hour labs Specialty Discharge - Follow Up or Referrals
[2016-08-29] MEDS: predniSONE 20 MG TABLET PO SCH (20:20)
[2016-08-29] MEDS: DOCUSATE SODIUM 100 MG CAPSULE PO SCH (20:21)
[2016-08-30] MEDS: ALBUTEROL 2.5 MG/3 ML NEB RESP TX SCH ×3 (00:51→12:25)
[2016-08-30] MEDS: BUDESONIDE 0.25 MG/2 ML NEB RESP TX SCH (06:59)
[2016-08-30] MEDS: FERROUS SULFATE 325 MG TABLET PO SCH (08:39)
[2016-08-30] MEDS: FUROSEMIDE 20 MG TABLET PO SCH (08:40)
[2016-08-30] MEDS: POTASSIUM CHLORIDE 20 MEQ TABLET PO SCH (08:40)
[2016-08-30] MEDS: ROFLUMILAST 500 MCG TABLET PO SCH (08:41)
[2016-08-30] MEDS: BENZONATATE 100 MG CAPSULE PO SCH (08:41)
[2016-08-30] MEDS: TAMSULOSIN 0.4 MG CAPSULE PO SCH (08:41)
[2016-08-30] MEDS: FINASTERIDE 5 MG TABLET PO SCH (08:42)
[2016-08-30] MEDS: predniSONE 20 MG TABLET PO SCH (08:42)
[2016-08-30] MEDS: AZITHROMYCIN 250 MG TABLET PO SCH (08:42)
[2016-08-30] MEDS: ASPIRIN EC 81 MG TABLET PO SCH (08:42)
[2016-08-30] MEDS: LORazepam 0.5 MG TABLET PO PRN (08:48)
--- NOTE | 2016-08-30 11:14 | Discharge Summary ---
Hospital Course - Hospital Course Hospital Course: The patient was admitted to the hospital with COPD exacerbation. The patient responded to moderate dose steroid, IV antibiotic, and beta agonist nebulized breathing therapies. The patient has severe end-stage COPD and the improvement was incremental and incomplete. The patient has reached maximum medical benefit of hospitalization today and wishes to be discharged so he can attend family reunion tomorrow. The patient has no angina, palpitations, fever, chills. The patient has minimal sputum production and he has residual moderate to severe air trapping. On the date of discharge I spent 35 minutes with discharge preparations including patient evaluation, patient education, and preparation of discharge documents. I spent 8 minutes in discussing tobacco avoidance with the patient. The patient is a previous smoker and does not smoke at present. - Time spent with patient Time with patient DS: Greater than 30 minutes Diagnosis - Discharge Diagnosis (1) Acute exacerbation of chronic obstructive airways disease Status: Resolved (2) Chest pain Status: Resolved (3) History of frequent urinary tract infections Status: Resolved Specialty Discharge - Follow Up or Referrals Discharge Plan - Discharge Data Disposition: Disch To Home/Self Care Condition at Discharge: Stable Discharge Diet: heart healthy Activity: resume usual activities as tolerated - Discharge Medications New predniSONE TAB [PredniSONE] 10 mg PO DAILY #30 tablet cephALEXin [Keflex] 500 mg PO Q12HR #14 capsule Continue Aspirin [Ecotrin] 81 mg PO DAILY Budesonide Neb [Pulmicort Respules] 0.25 mg RESP TX BID Albuterol Sulfate [Ventolin HFA] 2 puff INH Q6H PRN PRN Reason: Shortness Of Breath/Wheezing Tamsulosin [Flomax] 0.4 mg PO DAILY Benzonatate [Tessalon] 100 mg PO TID Furosemide Tab [Lasix Tab] 20 mg PO DAILY Roflumilast [Daliresp] 500 mcg PO DAILY Albuterol Sulfate [Albuterol Neb] 2.5 mg RESP TX Q6HR Potassium Chloride 20 meq PO DAILY LORazepam [Lorazepam] 0.5 mg PO Q8HR PRN PRN Reason: Anxiety Docusate Sodium Cap [Colace Cap] 100 mg PO BEDTIME Finasteride 5 mg PO DAILY Meclizine [Antivert] 25 mg PO QID PRN PRN Reason: Dizziness Ferrous Sulfate 325 mg PO DAILY Cyclobenzaprine [Flexeril] 10 mg PO TID PRN PRN Reason: Muscle Spasm Ferrous Sulfate [Ferrous Sulfate Cap] 325 mg PO DAILY PRN PRN Reason: Dizziness Benzonatate 100 mg PO Q8HR PRN PRN Reason: Cough Discontinued Aspirin 81 mg PO DAILY Meclizine [Antivert] 25 mg PO QID Levofloxacin Tab [Levaquin Tab] 750 mg PO DAILY - Follow Up or Referral Follow Up: Your,PCP [Other] - Forms/Instructions Instructions: Coronary Artery Disease (GEN), Left Heart Catheterization (DC) Exam - Constitutional Vitals: Period Temp Pulse Resp BP Sys/Ho Pulse Ox Last 24 Hr 97.2 F-98.7 F 70-104 16-22 114-138/54-67 96-100 DS: Provider Date of admission: 08/26/16 14:05 Primary care physician: Rehan Salvador Attending physician on admission: Eleuterio Barney MD Consults: 08/22/16 22:02 Consult to Physician [CONS] Routine Comment: sp cath Consulting Provider: Dilip Rodríguez 08/23/16 05:23 Consult to Dietitian [CONS] Routine Reason for Dietitian: Dietary Consult 08/23/16 06:24 Consult to Cardiac Rehabilitation [CONS] Routine Reason for Cardiac Rehabilitation: Other Consult Comment: stemi report Discharging clinician: Patricio Byers MD
[2016-08-30 11:52] VITALS: BP 133/97
[2016-08-31] MEDS ORDERED: predniSONE 10 MG TABLET PO SCH (09:00)
== END 2016-08-30 12:56 | disposition home or self-care (01) | DRG 190 ==
LOC: EDUNIT# → N.TELES 20:44 → N.ED 20:44 → SUATTDRO 23:11
PROVIDERS: ADMIT Internal Medicine; ATTEND Internal Medicine
PROC: CLCCHCL (ICD-10-PCS; 2016-08-22 21:45)